=== PATIENT | male | born 1960 | race African-American/Black ===

== ENCOUNTER 2023-04-03 12:38 | Emergency (ER) | payer BC, MEDICARE ==
[~2023-04-03] VITALS: Ht 190.5 cm; Wt 114.0 kg
[2023-04-03 13:01] VITALS: BP 108/63; PULSE 88; RESP 16; TEMP 98.5; O2SAT 99
== END 2023-04-03 16:22 | disposition home or self-care (01) ==
LOC: ER 12:38
DX: J06.9 Acute upper respiratory infection, unspecified (principal)
CPT/HCPCS: 71045; 99283

== ENCOUNTER 2023-08-27 22:59 | Emergency (ER) | payer MEDICARE, BC ==
[~2023-08-27] VITALS: Ht 193 cm; Wt 106.5 kg
[2023-08-27 23:32] VITALS: O2SAT 98
[2023-08-27] MEDS ORDERED: ACETAMINOPHEN 325MG TABLET PO ONE (23:45)
[2023-08-28] MEDS: TETANUS, DIPHTHERIA, PERTUSSIS VAC/PF 0.5ML (>10YR OLD) IM ONE (01:51)
[2023-08-28] MEDS: LIDOCAINE HCL/PF 1% 10 MG/ML 5ML VIAL INFIL ONE (01:52)
[2023-08-28] MEDS: BACITRACIN ZINC OINT UDPKT TOP ONE (01:52)
[2023-08-28 02:15] VITALS: BP 108/62; PULSE 65; RESP 16; TEMP 97.4
[2023-08-28] MEDS ORDERED: ACET-2708 PO (02:49)
[2023-08-28] MEDS ORDERED: CEPH500C2 MT (02:49)
== END 2023-08-28 03:06 | disposition home or self-care (01) ==
LOC: ER 22:59
DX: S81.811A Laceration without foreign body, right lower leg, initial encounter (principal); I10 Essential (primary) hypertension; W22.8XXA Striking against or struck by other objects, initial encounter; Y93.89 Activity, other specified; Y92.89 Other specified places as the place of occurrence of the external cause; Y99.8 Other external cause status
CPT/HCPCS: 99283; 73590; 12002; 90715; 90471; J3490

== ENCOUNTER 2023-09-16 13:09 | Emergency (ER) | payer MEDICARE, BC ==
[~2023-09-16] VITALS: Ht 193 cm; Wt 121.0 kg
[~2023-09-16 13:09] MED LIST: ACET-2708 PO; CEPH500C2 MT
[2023-09-16 13:18] VITALS: O2SAT 96
[2023-09-16 14:45] VITALS: BP 157/75; PULSE 93; RESP 18; TEMP 98.5
== END 2023-09-16 14:52 | disposition home or self-care (01) ==
LOC: ER 14:01
DX: S81.811D Laceration without foreign body, right lower leg, subsequent encounter (principal); X58.XXXD Exposure to other specified factors, subsequent encounter
CPT/HCPCS: 99281